=== PATIENT | female | born 1990 | race Caucasian/White ===

== ENCOUNTER 2018-01-17 09:40 | Outpatient (CLI) | payer OTHER, SELFPAY ==
[2018-01-17 11:27] LABS: CREATININE 1.04 mg/dL (0.55-1.02); Potassium 4.2 mmol/L (3.5-5.1)
== END 2018-01-17 10:00 ==
PROVIDERS: PCP Family Medicine; Visit Provider Family Medicine
DX: I10 Essential (primary) hypertension (principal)
CPT/HCPCS: 36415; 82565; 84132

== ENCOUNTER 2018-02-09 15:01 | Outpatient (REF) | payer OTHER, SELFPAY ==
[2018-02-12 15:21] LABS: Chlamydia Result Negative; GC Result Negative; Specimen Description CERVIX
== END 2018-02-09 15:21 ==
LOC: LBN 15:01
PROVIDERS: PCP Family Medicine; Visit Provider Nurse Practitioner Family
DX: Z11.3 Encounter for screening for infections with a predominantly sexual mode of transmission (principal)
CPT/HCPCS: 87491; 87591

== ENCOUNTER 2018-06-04 16:10 | Outpatient (REF) | payer OTHER, SELFPAY ==
--- NOTE | 2018-06-04 15:46 | SKI_PTH ---
PATIENT: Maday Cordero LOC: [facility] U#:[id number] AGE/SX: 27/F ROOM: RE06/04/[address]: Noam Charles DO : 1990 BED: DIS: 06/04/2018 SPEC #: [id number] RECD: 06/04/18 18:02 STATUS: ALAN REKatie #: [id number] BETTY: 06/04/18 15:[address]: Noam Charles DEPT: Surgical Specimen RECD BY: Ngoc Yeboah ENTERED: 06/04/18 18:04 SP TYPE: DELANEY DUPONT DR: Aris Mueller MD Tissues: 1 - SKIN BIOPSY(SHAVE/PUNCH) 2 - SKIN BIOPSY(SHAVE/PUNCH) Procedures: SKIN LEVEL 4 Comments: [id number]
== END 2018-06-04 16:30 ==
LOC: LBN 16:10
PROVIDERS: PCP Family Medicine; Visit Provider Otolaryngology Otolaryngology/Facial Plastic Surgery
DX: D22.4 Melanocytic nevi of scalp and neck (principal); D22.5 Melanocytic nevi of trunk
CPT/HCPCS: 88305

== ENCOUNTER 2019-03-18 16:01 | Outpatient (CLI) | payer OTHER, SELFPAY ==
[2019-03-18 17:43] LABS: TSH (W/Ref FT4) 2.91 uIU/mL (0.36-3.74)
== END 2019-03-18 16:21 ==
PROVIDERS: PCP Family Medicine; Visit Provider Nurse Practitioner Family
DX: Z86.39 Personal history of other endocrine, nutritional and metabolic disease (principal)
CPT/HCPCS: 36415; 84443

== ENCOUNTER 2019-04-26 14:41 | Outpatient (CLI) | payer OTHER, SELFPAY ==
[2019-04-26 15:33] LABS: Abs Immature Grans 0.02 k/cumm (0.0-0.09); Absolute Basophil Count 0.02 k/cumm (0.0-0.2); Absolute Eosinophil Count 0.22 k/cumm (0.0-0.7); Absolute Lymphocyte Count 3.05 k/cumm (1.2-3.4); Absolute Monocyte Count 0.65 k/cumm (0.11-0.7); Absolute Neutrophil Count 6.06 k/cumm (1.2-6.7); Basophils % 0.2; Eosinophils % 2.2; HGB 13.9 g/dL (12.0-15.5); Immature Grans % 0.2 %; Lymphocytes % 30.4; Mean Corp. HGB Concentration 33.9 g/dL (32.0-36.0); Mean Corpuscular Volume 91.5 fL (80-95); Mean Platelet Volume 10.5 fL (8.0-11.0); Monocytes % 6.5; Neutrophils % 60.5; Platelet Count 270 x1000/uL (130-400); RBC 4.48 m/cumm (4.00-5.20); RBC Distribution Width 12.8 % (11.7-14.6); White Blood Cell Count 10.02 k/cumm (4.4-10.8)
[2019-04-26 16:11] LABS: Anion Gap 12.8 mmol/L (3-11); BUN 8 mg/dL (7-18); CO2 24.2 mmol/L (21.0-32.0); CREATININE 1.18 mg/dL (0.55-1.02); Calcium 9.3 mg/dL (8.5-10.1); Chloride 105 mmol/L (98-107); Estimated GFR 54.15 (mL/min/1.73m2); Glucose 98 mg/dL (74-106); Potassium 4.1 mmol/L (3.5-5.1); Sodium 142 mmol/L (136-145)
== END 2019-04-26 15:01 ==
PROVIDERS: PCP Family Medicine; Visit Provider Family Medicine
DX: R42 Dizziness and giddiness (principal)
CPT/HCPCS: 36415; 80048; 85025

== ENCOUNTER 2019-11-19 14:29 | Outpatient (CLI) | payer OTHER, SELFPAY ==
[2019-11-19 16:25] LABS: Estimated GFR 58.32 (mL/min/1.73m2)
[2019-11-20 09:00] LABS: Calculated LDL 108 mg/dL (<100); Cholesterol 166 mg/dL (<200); HDL Cholesterol 33 mg/dL (40-60); Triglyceride 125 mg/dL (<150)
== END 2019-11-19 14:49 ==
PROVIDERS: PCP Family Medicine; Visit Provider Family Medicine
DX: N28.9 Disorder of kidney and ureter, unspecified (principal); E78.5 Hyperlipidemia, unspecified
CPT/HCPCS: 80061; 82565

== ENCOUNTER 2019-11-22 02:25 | Outpatient (CLI) | payer OTHER, SELFPAY | END 2019-11-22 02:45 | PROVIDERS: PCP Family Medicine; Visit Provider Family Medicine | DX: R00.1 Bradycardia, unspecified (principal) | CPT/HCPCS: 93225 ==

== ENCOUNTER 2019-11-25 14:17 | Outpatient (CLI) | payer OTHER, SELFPAY ==
--- NOTE | 2019-11-25 15:27 | W.HOLTRPT ---
Date of service: 11/25/19 Time of Service: 15:27 Holter Monitor Report Referring Provider:: Ervin Indications:: Palpitations Holter Monitor Note: There is a 48-hour Holter monitor ordered for indication of palpitations. The patient was in normal sinus rhythm for majority of the recording with an average heart rate of 80 bpm. ?There was one episode of SVT which lasted a total of 3 beats. There were 2 total premature atrial contractions. ?There were no episodes of ventricular tachycardia and 4 total single ventricular ectopic beats. ?There were no episodes of atrial fibrillation, no pauses greater than 3 seconds and no evidence of high degree heart block. ?There were no patient triggered events.
== END 2019-11-25 14:37 ==
PROVIDERS: PCP Family Medicine; Visit Provider Family Medicine
DX: R00.2 Palpitations (principal); I47.1 Supraventricular tachycardia; I49.1 Atrial premature depolarization
CPT/HCPCS: 93226

== ENCOUNTER 2020-04-13 09:16 | Outpatient (REF) | payer OTHER, SELFPAY ==
--- NOTE | 2020-04-13 08:20 | PAPFT_PTH ---
PATIENT: Maday Cordero LOC: [facility] U#:[id number] AGE/SX: 29/F ROOM: RE04/13/[address]: WILLOW Ram : 1990 BED: DIS: 04/13/2020 SPEC #: [id number] RECD: 04/13/20 13:02 STATUS: ALAN REKatie #: [id number] BETTY: 04/13/20 08:[address]: Hannah Mckeon DEPT: [facility] Cytology RECD BY: Ngoc Yeboah ENTERED: 04/13/20 13:02 SP TYPE: PAPFT OT DR: Aris Mueller MD Tissues: 1 - CX/ENDOCX FOR PAP SMEARS Procedures: PAP THIN PREP/UVM Screening HPV DNA PROBE Comments: [id number]
--- OUTSIDE RECORDS SUMMARY | 2020-04-13 09:37 | XMS_ITS ---
:1990 Author Care Team Providers Name Role Phone FALLON LANGSTON MD Primary Care Provider [phone] [facility] MEDICAL RECORDS OTHER [phone] Allergies Code Code Name Reaction Severity Status Onset System 442965 RxNorm Dexmethylphenidate ? ? Active ? 54672 RxNorm Lisinopril ? ? Active ? 1430792 RxNorm Lorcaserin ? ? Active ? Medications Name Status Start Date Stop Date ? ? amlodipine 5 mg-olmesartan 20 mg tablet Completed ? 03/26/2020 amlodipine 5 mg-olmesartan 40 mg tablet Active ? Not available 04/25 tab amoxicillin 875 mg tablet Completed ? 2019 amoxicillin 875 mg-potassium Completed ? 04/2019 clavulanate 125 mg tablet bupropion HCl XL 150 mg 24 hr tablet, Completed ? 01/23/2020 extended release fluconazole 150 mg tablet Completed ? 2019 fluoxetine 10 mg tablet Completed ? 01/23/20 20 fluoxetine 20 mg capsule Completed ? 020 prednisolone acetate 1 % eye Completed ? 04/2019 drops,suspension Problems Name Status Onset Date Source ? Compound Nevus of Skin Active 01/17/2020 ? Pseudotumor Calcinosis Active 01/17/2020 ? Obesity Active 01/17/2020 ? Migraine without Aura Active 01/17/2020 ? Drusen of Optic Disc Active 01/17/2020 ? Hypertensive Disorder Active 01/17/2020 ? Acute Nephropathy Active 01/17/2020 ? Nephritis Active 01/17/2020 ? Contraception Active 01/17/2020 ? History of Hypertension Active 01/17/2020 ? Snoring Active 01/21/2020 ? Obstructive Sleep Apnea Syndrome Active ? ? Procedures None recorded. Results Lab Results None recorded. 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 01/23/2020 Snoring; Insomnia Kelsey Mcdaniel, PALLET STONE POSITIONER: [address] [place] [phone], Ph. Social History Tobacco Smoking Status Never Smoker Vaccine List None recorded. Plan of Care Reminders Provider Appointments None ? ? recorded. Lab None ? ? recorded. Referral None ? ? recorded. Procedures None ? ? recorded. Surgeries None ? ? recorded. Imaging None ? ? recorded. Vitals 03/26/2020 02:30PM Office 30 Height 170.18 cm 01/23/2020 03:15PM New Patient 44 Height Weight BMI 170.18 cm 122.47 kg 42.3 kg/m2
--- OUTSIDE RECORDS SUMMARY | 2020-04-13 09:37 | XMS_ITS | Encounter Summary ---
:1990 Author Care Team Providers Name Role Phone Aris Mueller MD Primary Care Provider [phone] [facility] Medical Records OTHER [phone] Reason for Visit SLEEP CLINIC New Adult Patient Assessment and Plan 1. Snoring Maday has symptoms of snorin g, daytime somnolence, nocturnal gasping/dyspnea, nocturia with a [place] score of 3/3 indicating a high likelihood of sleep apnea. She has HTN which may be caused or worsened by untreated sleep apnea. I discussed the pathophysiology of obstructive sleep apnea and the potential consequences of untreated JOHNNIE including how it relates to her symptoms and comorbiditi es. 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 I discussed ordering a PSG but she has a young daughter at home that she does not want to leave alone so she has re quested to have a HST and this was order ed. I will see her back to review the results when available. Drowsy driving precautions were reviewed. I provided greater than 40 minutes in e care of this patient, more than half the time was spent in [id number] counseling. ? Home Sleep Apnea Testing 2. Insomnia She reports is takes 1-2 hours to fall asleep every night but she gets to bed with her daughter around 8:30 pm and she doesn't get up until 6:30 am. I explained that she really shouldn't be g etting to bed until around 10:30 pm if her rise time is 6:30 am. She is trying to g et more sleep than she needs and in turn creating the problem with falling asleep . unfortunately her daughter sleeps with her and she needs to go to bed with her to g et her to sleep. I would not recommend any sleep aid for this. Discussion Note: None recorded.Patient educational handouts: No information available. Plan of Care Reminders Provider Appointments Office 06/24/2020 Rafi Mcdaniel, 3:30PM TOOL TURRET LATHE SET UP OPERATOR Lab None ? ? recorded. Referral None ? ? recorded. Procedures None ? ? recorded. Surgeries None ? ? recorded. Imaging None ? ? recorded. Medications Name Start Date ? ? amlodipine 5 mg-olmesartan 40 mg tablet ? 1/2 tab Medications Administered None recorded. Vitals Height Weight BMI 5 ft 7 in 270 lbs 42.3 kg/m2 Results Lab Results None recorded. Allergies Code Code System Name Reaction Severity Onset 997209 RxNorm Dexmethylphenidate ? ? ? 49471 RxNorm Lisinopril ? ? ? 3048091 RxNorm Lorcaserin ? ? ? Problems Name Status Onset Date Source ? [...] Syndrome Active ? ? Procedures None recorded. Vaccine List None recorded. Social History Tobacco Smoking Status Never Smoker Are you currently employed? Y Blind or serious difficulty Y Notes: wi th glasses seeing Have you had close contact with N someone who travelled internationally and was ill? Advance directive N E-cigarette/Vape Status Never used electronic cigarettes Exercise level Moderate Hand Dominance Right Alcohol intake None Live alone or with others? with others Animal exposure? Y Notes: 2 dogs Smokeless Tobacco Status Never used smokeless tobacco Education 4 Year College Current Method of Control Hormonal methods Passive smoke exposure? N Hard of hearing or deaf in one or N both ears? 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 Past Encounters 01/23/2020 Snoring; Insomnia Kelsey Mcdaniel NP: [address] [place] [phone], Ph. History of Present Illness Note: <p>Maday Cordero is seen in consultation at the request of Aris Mueller MD for evaluation of snoring and daytime somnolence.</p><p>
</p><p>Maday hasa medical history to include HTN, obesity. GERD, migraine, and nephritis (s/p nephrectomy). Labs 04/26/19 CBC wnl, BMP Cr 1.18.</p><p>
</p><p>{{Maday# Patient}} feels {{his her*}} biggest problem with sleep is {{ waking up a lot and lack of ability to sleep# snoring waking up a lot not feeling rested}}. This has been going on for years now. 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 It takes {{60-120# 5}} minutes to fall asleep. {{He She*}} wakes up {{3-5# 1 2 3}} times a night to{{urinate or reposition# unknown reason pain bathroom}} and it takes {{5# }} minutes to get back to sleep. {{He She*}} gets up at {{6:30 # 5 6 7 8}}am to start {{his her*}} day. {{He She*}} does not take na ps. {{He She*}} has disturbances to {{his her*}} sleep to include having {{TV lights noise children * pets}} in the bedroom at night. {{He She*}} has never had a sleep study. {{He She*}}sleeps {{ with someone and two dogs# alone with someone}} in a bed.

SLEEP QUALITY: Feels quality of sleep most nights is {{good okay poor*}}.

DAYTIME ALERTNESS: Reports level of alertness most days to be {{ low energy to sleepy# alert low energy sleepy very sleepy}}.

PSYCH SYMPTOMS: {{Has* Has not}} noted worsening memory {{but not# and or}} concentration. {{Does# Does have Denies current problems with }} irritability{{and * or}} anxiety. {{but no depression# Has Has not}} noted difficulty with calculatio ns.

INSOMNIA SYMPTOMS: {{Does have * Does not have}} an active mind at night when trying to sleep. {{Does have Does not have*}} stressful thoughts interfering with sleep. {{Does * Does not}} watch the clock throughout the night. {{Does * Does not}} worry about getting a good night's sleep.

BREATHING SYMPTOMS: {{Does have * Does not have}} snoring. {{Does have Does not have*}} witnessed apnea. {{Does have * Does not have}} nocturnal gasping/dyspnea.{{Does have * Does not have}} mouth breathing. {{Does have Does not have*}} nasal congestion at night.&l t;br>

MOVEMENT SYMPTOMS: {{Does have * Does not have}} tossing & turning. {{Does have * Does not have}} messy sheets in the morning. {{Does have Does not have*}} leg or arm jerks, kicks or twitches in sleep or prior to falling asleep. {{Does Does not*}} have an aching, restless or crawling feeling in legs at night. {{Does Does not*}} have a hard time keeping legsstill when trying to sleep. {{Does Does not*}} have muscle cramps or Priyank horses. {{Does Does not*}} have sleep walking or talking.

DREAM SYMPTOMS: {{Does have Does not have*}} nightmares often that affect ability to sleep. {{Does have * Does not have}} dreams of suffocating/drowning. {{Does Does not*}} dream shortly after falling asleep. {{Does Does not*}} see dreams in the room even when awake.{{Does Does not*}} see or hear things in the room when falling asleep that aren't really there. {{Does Does not*}} see things in the road when driving that aren't really there. {{Has Has not*}} had someone see then act our their dreams. {{Has Has not*}} accidentally injured themselves while sleeping due to own movements/behaviors.

CATAPLEXY SYMPTOMS: {{Does have Does not have*}} feel limp, lose strength, or fall asleep when very angry, surprised or laughing. {{Does have Does not have*}} leg, arm or face weakness when upset. {{Has Has not*}} had episodes of being unable to move when waking up which is often frightening.

DRIVING: {{Has Has not*}} fallen asleep or nearly fallen asleep driving. {{Has had Amezquita s not had*}} an accident related to drowsy driving or not paying attention. {{Does * Does not}} forget the last few miles or minutes while driving. {{Has Has not*}} driven out of andres and crossed center line or gone onto shoulder when driving. {{Has Has not*}} had a passenger tell them they look sleepy when driving.

ESS today 02/14
[place] Questionnaire Score 3/3</p>Review of Systems: ROS as noted in the HPI Review of Systems ? Notes: <p>nocturia 1-2/night, wakes with sore throat, palpitations, heartburn/reflux (was waking with this until taking famotidine), morning headaches (1-2/week) and claustrophobia. </p> Physical Exam ? Notes: <p>N/A</p>
--- OUTSIDE RECORDS SUMMARY | 2020-04-13 09:37 | XMS_ITS | Encounter Summary ---
:1990 Author Care Team Providers Name Role Phone Aris Mueller MD Primary Care Provider [phone] [facility] Medical Records OTHER [phone] Reason for Visit Phone Call Visit Assessment and Plan 1. Obstructive sleep apnea syndr ome JOHNNIE with an AHI of 8.6/hr diag nosed on HST which may underestimate the severity. Given her symptoms ( snoring, daytime somnolence, nocturnal gasping/dyspnea, nocturia) and HTN, treatment is i ndicated. I discussed treatment options to include oral appliance, ENT surgery and CPAP therapy and the advantages and disadvantages of each. She has chosen to start with CPAP. CPAP 6-16cm is ordered. I discussed different mask options and e importance of finding the mask that will work for her within the first 30 days. I discussed how to adjust humidity for dryness/congestion and that the goal will be to use nightly for her total sleep t padmini. I covered insurance compliance requirements and the DME's mask exchange policy. I will see her back between 31- 90 days after starting CPAP and she is encoura getanvir to call me sooner if he is having an y difficulties tolerating CPAP. Drowsy driving precautions were reviewed. I provided greater than 25 minutes in e care of this patient, more than half the time was spent in [id number] counseling. ? CPAP machine Discussion Note: None recorded.Patient educational handouts: No information available. Plan of Care Reminders Provider Appointments Office 30 06/24/2020 Rafi Mcdaniel, 3:30PM CONDUIT INSTALLER Lab None ? ? recorded. Referral None ? ? recorded. Procedures None ? ? recorded. Surgeries None ? ? recorded. Imaging None ? ? recorded. Medications Name Start Date ? ? amlodipine 5 mg-olmesartan 40 mg tablet ? 1/2 tab Medications Administered None recorded. Vitals Height 5 ft 7 in Results Lab Results None recorded. Allergies Code Code System Name Reaction Severity Onset 826588 RxNorm Dexmethylphenidate ? ? ? 94885 RxNorm Lisinopril ? ? ? 5225605 RxNorm Lorcaserin ? ? ? Problems Name [...] someone who travelled internationally and was ill? E-cigarette/Vape Status Never used electronic cigarettes Advance directive N Exercise level Moderate Animal exposure? Y Notes: 2 dogs Live alone or with others? with others Alcohol intake None Hand Dominance Right Education 4 Year College Smokeless Tobacco Status Never used smokeless tobacco Current Method of Control Hormonal methods Hard of hearing or deaf in one or N both ears? Passive smoke exposure? 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 Past Encounters 03/26/2020 Obstructive Sleep Apnea Syndrome Kelsey Mcdaniel CONDUIT INSTALLER: [address] [place] [phone], Ph. History of Present Illness Note: <p>Maday Cordero has a phone visit for HST results. She has given consent to have a phone visit. Patient is at home, provider is in the office.</p><p>
</p><p>Maday was seen by me on 01/23/20. She has a medical history to include HTN, obesity. GERD, migraine, and nephritis (s/p nephrectomy). Labs 04/26/19 CBC wnl, BMP Cr 1.18. She noted symptoms of snoring, daytime somnolence (ESS 10), nocturnal gasping/dyspnea, and nocturia. She also reported it takes 1-2 hours to fall asleep each night but she goes to bed with her daughter at 2030 and does not get up until 0630 so she is getting to bed too early. I suggested she not go to bed until 2229.</p><p>HST 02/12/20 (BMI 42.28), AHI 8.6/hr, supine AHI 11/hr, right lateral AHI 7/hr, left lateral AHI 1/hr. Sp02 moon 88%.</p><p>
</p><p>Maday tells me she continues tohave above symptoms and offers no new sleep complaints today. She says her sleep was worse for the study compared to a typical night because she kept waking up from the PTAF.</p><p>
</p><p>ESS today 02/14</p>Review of Systems: ROS as noted in the HPI Review of Systems None recorded. Physical Exam ? Notes: <p>N/A</p>
== END 2020-04-13 09:36 ==
LOC: LBN 09:16
PROVIDERS: PCP Family Medicine; Visit Provider Nurse Practitioner Family
DX: Z12.4 Encounter for screening for malignant neoplasm of cervix (principal); Z11.51 Encounter for screening for human papillomavirus (HPV)
CPT/HCPCS: 88142; 87624

== ENCOUNTER 2020-04-15 15:14 | Outpatient (CLI) | payer OTHER, SELFPAY ==
[2020-04-15 16:22] LABS: Anion Gap 8.3 mmol/L (3-11); BUN 10 mg/dL (7-18); CO2 25.7 mmol/L (21.0-32.0); CREATININE 1.33 mg/dL (0.55-1.02); Calcium 8.9 mg/dL (8.5-10.1); Chloride 106 mmol/L (98-107); Estimated GFR 46.84 (mL/min/1.73m2); Glucose 74 mg/dL (74-106); Sodium 140 mmol/L (136-145)
== END 2020-04-15 15:34 ==
PROVIDERS: PCP Family Medicine; Visit Provider Family Medicine
DX: E87.1 Hypo-osmolality and hyponatremia (principal)
CPT/HCPCS: 36415; 80048

== ENCOUNTER 2020-07-08 02:20 | Outpatient (CLI) | payer OTHER, SELFPAY ==
[2020-07-08 15:55] LABS: Abs Immature Grans 0.05 10^3/uL (0.0-0.06); Absolute Basophil Count 0.05 10^3/uL (0.0-0.2); Absolute Eosinophil Count 0.26 10^3/uL (0.0-0.7); Absolute Lymphocyte Count 3.72 10^3/uL (1.2-3.4); Absolute Monocyte Count 0.83 10^3/uL (0.1-0.8); Absolute Neutrophil Count 7.61 10^3/uL (1.2-6.7); Basophils % 0.4; Eosinophils % 2.1; HCT 42.4 % (36.0-46.0); HGB 14.2 g/dL (11.2-15.7); Immature Grans % 0.4; Lymphocytes % 29.7; MCH 31.8 pg (27.0-33.0); MCHC 33.5 % (32.0-36.0); MCV 95.1 fL (80-95); MPV 10.1 fL (8.0-11.0); Monocytes % 6.6; Neutrophils % 60.8; Nucleated RBC 0 %; Platelet Count 295 10^3/uL (130-400); RBC 4.46 10^6/uL (3.93-5.22); RDW 12.3 % (11.7-14.6); WBC 12.52 10^3/uL (4.4-10.8)
[2020-07-08 16:29] LABS: Anion Gap 11.5 mmol/L (3-11); BUN 9 mg/dL (7-18); CO2 25.5 mmol/L (21.0-32.0); CREATININE 1.3 mg/dL (0.55-1.02); Chloride 105 mmol/L (98-107); Estimated GFR 48.09 (mL/min/1.73m2); Glucose 96 mg/dL (74-106); Potassium 3.9 mmol/L (3.5-5.1); Sodium 142 mmol/L (136-145)
== END 2020-07-08 02:21 | disposition home or self-care (01) ==
LOC: LBO 02:20
PROVIDERS: PCP Family Medicine; Visit Provider Internal Medicine Nephrology
DX: I15.0 Renovascular hypertension (principal)
CPT/HCPCS: 36415; 80048; 85025

== ENCOUNTER 2020-08-03 13:35 | Outpatient (REF) | payer OTHER, SELFPAY ==
[2020-08-07 10:04] LABS: HSV 1 DNA Result Negative (Negative); HSV 2 DNA Result Negative (Negative)
== END 2020-08-03 13:36 | disposition home or self-care (01) ==
LOC: LBN 13:35
PROVIDERS: PCP Family Medicine; Visit Provider Nurse Practitioner Women's Health
DX: K13.79 Other lesions of oral mucosa (principal)
CPT/HCPCS: 87529

== ENCOUNTER 2020-08-04 21:01 | Outpatient (REF) | payer OTHER, SELFPAY | END 2020-08-04 21:02 | disposition home or self-care (01) | LOC: LBN 21:01 | PROVIDERS: PCP Family Medicine; Visit Provider Nurse Practitioner Family | DX: J02.9 Acute pharyngitis, unspecified (principal) | CPT/HCPCS: 87070 ==

== ENCOUNTER 2020-10-27 14:31 | Outpatient (CLI) | payer OTHER, SELFPAY ==
--- NOTE | 2020-10-27 14:30 | RT.EKG_ITS ---
APPROVED REPORT Exam: Resting ECG Reason for Exam: chest pain Patient Location: O HR:81 bpm ECG Measurements Heart Rate 81 AXIS SC 151 P 42 QRSd 93 QRS 34 QT 399 T 56 QTc 464 Conclusion Sinus rhythm...normal P axis, V-rate 60- 99
== END 2020-10-27 14:32 | disposition home or self-care (01) ==
LOC: DI.CM 14:32
PROVIDERS: PCP Family Medicine; Visit Provider Family Medicine
DX: R07.9 Chest pain, unspecified (principal)
CPT/HCPCS: 93010

== ENCOUNTER 2020-12-18 21:03 | Outpatient (REF) | payer OTHER, SELFPAY ==
[2020-12-20 01:49] LABS: COVID-19 RT-PCR UVMMC Result Negative (Negative)
== END 2020-12-18 21:04 | disposition home or self-care (01) ==
LOC: LBN 21:03
PROVIDERS: PCP Family Medicine; Visit Provider Physician Assistant
DX: Z20.822 Contact with and (suspected) exposure to COVID-19 (principal)
CPT/HCPCS: U0003

== ENCOUNTER 2020-12-21 09:00 | Emergency (ER) | payer OTHER, SELFPAY ==
[2020-12-21] VITALS (15 sets, daily range): BP systolic 128–159; BP diastolic 70–114; PULSE 61–89; RESP 16–23; TEMP 36.6; O2SAT 95–100
--- NOTE | 2020-12-21 09:15 | DI.CT_ITS ---
Exam(s) CT HEAD WO EXAM: CT HEAD WO CLINICAL HISTORY: Headache, Dizziness. TECHNIQUE: Imaging Protocol: Axial computed tomography images with coronal and sagittal reformatted images were created and reviewed COMPARISON: No exams were available for comparison FINDINGS: Ventricles and Extra axial spaces: Normal in size and morphology for the patient's age. Hemorrhage: None. Cerebral parenchyma: Normal. Midline shift: None. Brainstem/Cerebellum: Normal. Calvarium: Normal. Visualized Paranasal sinuses/Mastoids: There is near complete opacification of the left sphenoid sinu s. The remaining visualized paranasal sinuses and mastoid air cells are clear. Soft Tissues: Unremarkable. IMPRESSION: 1. No acute intracranial process. 2. Left sphenoid sinusitis. 3. Results of this exam have been verbally communicated with provider. RADIATION DOSE DELIVERED: 768.42mGy.cm Total DLP DATA REPOSITORY: All CT scans at this facility are submitted to the National Radiology Data Registry (NRDR) Dose Index Registry (DIR) with the [employer] (A[employer]). RADIATION OPTIMIZATION: All CT scans at this facility use at least one of these dose optimization te chniques: automated exposure control; mA and/or kV adjustment per patient size (includes targeted exa ms where dose is matched to clinical indication); or iterative reconstruction.
--- NOTE | 2020-12-21 09:18 | W.ED.GENAD ---
Discharge Plan Disposition Patient Disposition: HOME Condition: Stable Discharge Details Clinical Impression: Headache, Sinusitis Primary Care Provider: Aris Mueller ED Provider: Svetlana Gallegos Home Meds and New Rx's Prescriptions: New ondansetron 4 mg tablet,disintegrating 4 mg PO Q8H PRN5 Days Qty: 15 RF: 0 amoxicillin-pot clavulanate [Augmentin] 875-125 mg tablet 1 tab PO BID 10 Days Qty: 20 RF: 0 fluconazole [Diflucan] 150 mg tablet 150 mg PO ONCE Qty: 1 RF: 0 Continued famotidine 20 mg tablet 20 mg PO DAILY PRN (Reason: acid reflux) Qty: 90 RF: 3 metoprolol tartrate 25 mg tablet 12.5 - 25 mg PO BID Qty: 180 RF: 3 Nexplanon 68 mg implant 1 implant SBD ONCE RF: 0 meclizine 25 mg tablet 25 mg PO TID PRN (Reason: dizziness) Qty: 10 RF: 0 metoprolol succinate 25 mg tablet extended release 24 hr 25 mg PO DAILY Qty: 30 RF: 2 escitalopram oxalate 10 mg tablet 10 mg PO DAILY Qty: 30 RF: 2 clonazepam [Klonopin] 0.5 mg tablet 0.25 - 0.5 mg PO BID Qty: 30 RF: 1 Discharge Instructions Instructions: General Headache (ED) Additional Instructions: At this time you have opted to leave prior to receiving the results from the head CT. I will give you a call if any abnormality arises any need to be aware. Follow up with primary care provider in 3-5 days. Return to ED sooner if any worsening or concerns. Increase oral fluids. Please take Tylenol or Ibuprofen with food every 4-6 hours as needed for pain and swelling. Zofran was sent to the pharmacy we have on file for you. Referrals: Aris Mueller [Primary Care Provider] - 5 days Medical Decision Making 30-year-old female presents to the ER with chief complaint of headache and dizziness x1 week. Patient was seen in urgent care on Monday and was given meclizine. She reports occipital pain, frontal headache pain and sinus pressure. She states that dizziness gets worse when turning head to the right and laying on her right side. She denies any recent head trauma. No nuchal rigidity. Denies any fever, chills, problems urinating or burning with urination or any other associated symptoms. Does have a past medical history of anxiety, hypertension, renal hypertension she does take metoprolol she did take this morning approximately 8:30 AM. She also took Tylenol around 7 AM. At this time work-up ordered including CBC CMP, urinalysis urine test and CT head without contrast. IV normal saline 1 L Compazine and Benadryl ordered. 1106: Patient re-evaluated, pain has improved. Awaiting CT at this time. Patient updated on plan of care, verbalizes understanding. 1220: Patient requesting to leave prior to CT rib being resulted. Patient informed that cannot rule out any major intracranial process. Patient reports that she is feeling better after the medications and fluids and would like to be discharged. I will call patient for any CT abnormality if needed. 1246: CT head negative except for some left sphenoid sinusitis. Patient called and made aware of the CT result. She verbalized understanding. Amoxicillin clavulanate and Diflucan x1 sent to patient's pharmacy on file. Patient has remained hemodynamically stable throughout stay. This text was generated using [employer] system, please disregard any oddities of phrase or misspellings. HPI General Mode of arrival: ambulatory. Date/Time Provider Initiated Documentation: 12/21/20 09:01. Limitations to Documentation: no limitations. Information obtained by: patient and RN notes reviewed. HPI Narrative: 30-year-old female presents to the ER with chief complaint of headache and dizziness x1 week. Patient was seen in urgent care on Monday and was given meclizine. She reports occipital pain, frontal headache pain and sinus pressure. She states that dizziness gets worse when turning head to the right and laying on her right side. She denies any recent head trauma. No nuchal rigidity. Denies any fever, chills, problems urinating or burning with urination or any other associated symptoms. Does have a past medical history of anxiety, hypertension, renal hypertension she does take metoprolol she did take this morning approximately 8:30 AM. She also took Tylenol around 7 AM. Related Data Home Medications Medication Instructions Recorded Confirmed etonogestrel 68 mg subdermal 1 implant SBD ONCE 05/10/18 12/21/20 implant famotidine 20 mg tablet 20 mg PO DAILY PRN #90 tab 11/20/19 12/21/20 metoprolol succinate 25 mg 25 mg PO DAILY #30 tab 08/20/20 12/19/20 tablet,extended release 24 hr metoprolol tartrate 25 mg tablet 12.5 - 25 mg PO BID #180 tab 08/28/20 12/21/20 clonazepam 0.5 mg tablet 0.25 - 0.5 mg PO BID #30 tab 10/27/20 12/19/20 escitalopram oxalate 10 mg tablet 10 mg PO DAILY #30 tab 10/27/20 12/19/20 meclizine 25 mg tablet 25 mg PO TID PRN #10 tab 12/18/20 12/21/20 amoxicillin-pot clavulanate 1 tab PO BID 10 Days #20 tab 12/21/20 [Augmentin] fluconazole [Diflucan] 150 mg PO ONCE #1 tab 12/21/20 ondansetron 4 mg PO Q8H PRN 5 Days #15 tab 12/21/20 Previous Rx's Medication Instructions Recorded famotidine 20 mg tablet 20 mg PO DAILY PRN #90 tab 11/20/19 metoprolol succinate 25 mg 25 mg PO DAILY #30 tab 08/20/20 tablet,extended release 24 hr metoprolol tartrate 25 mg tablet 12.5 - 25 mg PO BID #180 tab 08/28/20 clonazepam 0.5 mg tablet 0.25 - 0.5 mg PO BID #30 tab 10/27/20 escitalopram oxalate 10 mg tablet 10 mg PO DAILY #30 tab 10/27/20 meclizine 25 mg tablet 25 mg PO TID PRN #10 tab 12/18/20 amoxicillin-pot clavulanate 1 tab PO BID 10 Days #20 tab 12/21/20 [Augmentin] fluconazole [Diflucan] 150 mg PO ONCE #1 tab 12/21/20 ondansetron 4 mg PO Q8H PRN 5 Days #15 tab 12/21/20 Allergies Allergy/AdvReac Type Severity Reaction Status Date / Time dexmethylphenidate HCl AdvReac Severe palpitation Verified 12/21/20 09:18 [From Focalin] s lorcaserin HCl [From Belviq] AdvReac Severe Palpitation Verified 12/21/20 09:18 s lisinopril AdvReac Intermediate cough Verified 12/21/20 09:18 General Stated Complaint: Headache SVEN: 3 Review of Systems All systems reviewed & are unremarkable except as noted in HPI and below Constitutional Constitutional: Reports as per HPI, Denies body ache(s), Denies chills, Denies fever(s) and Reports headache(s) Eyes Eyes: Denies loss of vision ENT Ears, Nose, Mouth, and Throat: Reports dizziness, Denies otalgia, Reports headache(s), Denies neck pain, Reports sinus pressure and Denies sore throat Cardiovascular Cardiovascular: Denies chest pain Respiratory Respiratory: Denies chest congestion and Denies cough Gastrointestinal Gastrointestinal: Denies diarrhea, Denies nausea and Denies vomiting Genitourinary Genitourinary: Denies dysuria and Denies urinary incontinence Musculoskeletal Musculoskeletal: Denies neck pain Neurologic Neurologic: Reports dizziness, Reports headache(s), Denies lack of coordination, Denies localized weakness, Denies loss of vision and Denies convulsions [facility] Medical History Chronic hypertension conceived on Methyldopa. 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 REYNOLDS; RIGHT HAMMERT[place] 09/08/17 History of wisdom tooth extraction Right toe (~08/2017) Status post tonsillectomy and adenoidectomy Tonsillectomy and adenoidectomy age 14 yrs Tooth extraction (~2006) [place] teeth extraction Family History Mother Heart disease Congenital heart defect Father Essential hypertension Grandfather Diabetes Alcohol abuse Essential hypertension Depression Heart disease Hyperlipidemia Asthma Grandfather Alcohol abuse Essential hypertension Heart disease Hyperlipidemia Asthma Grandmother Diabetes Alcohol abuse Essential hypertension Heart disease Grandmother Alcohol abuse Essential hypertension Heart disease Brother Essential hypertension Social History Smoking/Tobacco Use Status: Never Second Hand Exposure: No Smoking risk assessment performed?: Yes Alcohol Intake: never Drug use: Never Caregiver/Support person: No Household members: spouse and children Housing: house Communication Needs: None Do you need help understanding health information?: Never Pets and animals: Yes Pets and animals: dog(s) Sexually active: Yes Do you think of yourself as: straight/heterosexual Current gender identity: female What is your relationship status?: How often do you talk on the phone with friends or family?: three or more times per week How often do you get together with friends or relatives?: once per week How often do you attend sikh or confucianist services?: decline to answer Do you belong to any clubs or organized social groups?: yes Panel score (0-1 are the most socially isolated patients): 3 What type of physical activity do you participate in: walking Duration: 15-30 minutes/day Frequency: 1-2 times per week Chayo/Episcopalian: No preference Special chayo needs: No Seatbelt use: always Helmet use: Yes Helmet use: always Drive intox or ride w/intox petroleum transport driver: No Do you feel safe at home: Yes Do you feel safe in your relationship?: Yes Female Reproductive History Menstrual control method: progestin IUCD and implanted History History 2 Para 1 Hx # Term Pregnancies Multiple births Hx # Pregnancies Ectopic pregnancies AB induced Hx Number of Living Children AB spontaneous Exam Narrative Exam Narrative: Constitutional: Alert and oriented x3. Appears stated age. Normal body habitus. Head: Normocephalic, no trauma. Eyes: Pupils PERRLA, Red reflex noted, EOM's intact. Eyelids symmetrical without lesions, discharge, or swelling. ENT: Bilateral TM's WNL, External ear normal to inspection, no mastoid TTP, swelling, or erythema, Nasal turbinates WNL, no nasal discharge. Normal dentition, Posterior pharynx WNL, no exudate. Chest: RRR, Normal S1, S2, distal pulses intact. Resp: Lungs clear to auscultation bilaterally, no wheezes, rales, or rhonchi. Musculoskeletal: Normal gait, 5/5 strength to all four extremities. Skin: No suspicious rashes or lesions. Capillary refill less than 2 sec. Neurologic: Cranial nerves II-XII intact. Alert and oriented x 3. DTR's intact. Hematologic/Lymphatic: No ecchymosis, no lymphadenopathy. Course Vital Signs Vital signs: Vital Signs Temperature 36.6 C 12/21/20 09:06 Pulse 85 12/21/20 09:06 Respiratory Rate 16 12/21/20 09:06 Pulse Oximetry 100 12/21/20 09:06 Temperature 36.6 C 12/21/20 09:06 Temperature Source Temporal Artery Scan 12/21/20 09:06 Pulse 85 12/21/20 09:06 Respiratory Rate 16 12/21/20 09:06 Respiratory Effort Non-Labored 12/21/20 09:16 Blood Pressure Position Sitting 12/21/20 09:06 Pulse Oximetry 100 12/21/20 09:06 Oxygen Delivery Method Room Air 12/21/20 09:06 Oxygen Flow Rate 0 12/21/20 09:06 Pain Level 6 12/21/20 09:06
[2020-12-21] MEDS: diphenhydrAMINE 50 MG/ML VIAL 25 MG IVP (09:52)
[2020-12-21] MEDS: Prochlorperazine 10 MG/2 ML VIAL IVP (09:52)
[2020-12-21 09:56] LABS: Abs Immature Grans 0.03 10^3/uL (0.0-0.06); Absolute Basophil Count 0.03 10^3/uL (0.0-0.2); Absolute Eosinophil Count 0.04 10^3/uL (0.0-0.7); Absolute Lymphocyte Count 1.93 10^3/uL (1.2-3.4); Absolute Monocyte Count 0.63 10^3/uL (0.1-0.8); Absolute Neutrophil Count 6.27 10^3/uL (1.2-6.7); Basophils % 0.3; Eosinophils % 0.4; HCT 45.2 % (36.0-46.0); HGB 15.5 g/dL (11.2-15.7); Immature Grans % 0.3; Lymphocytes % 21.6; MCH 31.4 pg (27.0-33.0); MCHC 34.3 % (32.0-36.0); MCV 91.7 fL (80-95); MPV 10.2 fL (8.0-11.0); Monocytes % 7.1; Neutrophils % 70.3; Nucleated RBC 0 %; Platelet Count 251 10^3/uL (130-400); RBC 4.93 10^6/uL (3.93-5.22); RDW 12.2 % (11.7-14.6); RDW-SD 41.2 fL; WBC 8.93 10^3/uL (4.4-10.8)
[2020-12-21 10:09] LABS: ALT 27 U/L (14-59); AST 7 U/L (15-37); Albumin 4.1 g/dL (3.4-5.0); Alkaline Phosphatase 68 U/L (46-116); Anion Gap 12.8 mmol/L (3-11); BUN 9 mg/dL (7-18); Bilirubin, Total 0.7 mg/dL (0.2-1.0); CO2 24.2 mmol/L (21.0-32.0); CREATININE 1.3 mg/dL (0.55-1.02); Chloride 106 mmol/L (98-107); Estimated GFR 47.78 (mL/min/1.73m2); Glucose 111 mg/dL (74-106); Potassium 3.9 mmol/L (3.5-5.1); Sodium 143 mmol/L (136-145); Total Protein 7.5 g/dL (6.4-8.2)
[2020-12-21] MEDS: Normal Saline 1,000 ML 1000 ML IV (11:16)
== END 2020-12-21 12:34 | disposition home or self-care (01) ==
PROVIDERS: Emergency Provider Registered Nurse Emergency; PCP Family Medicine
DX: R51.9 Headache, unspecified (principal); J01.80 Other acute sinusitis
CPT/HCPCS: 36415; 80053; 81025; 96361; 96374; 96375; 99284; 70450; 85025; J0780; J1200

== ENCOUNTER 2021-01-12 01:44 | Outpatient (REF) | payer OTHER, SELFPAY ==
[2021-01-12 20:56] LABS: COVID-19 RT-PCR UVMMC Result Negative (Negative)
== END 2021-01-12 01:45 | disposition home or self-care (01) ==
LOC: LBO 01:44
PROVIDERS: PCP Family Medicine; Visit Provider Nurse Practitioner Family
DX: Z20.822 Contact with and (suspected) exposure to COVID-19 (principal)
CPT/HCPCS: U0003

== ENCOUNTER 2021-02-02 11:07 | Outpatient (CLI) | payer OTHER, SELFPAY ==
[2021-02-02 14:54] LABS: D-Dimer 144 ng/mlFEU (<500)
== END 2021-02-02 11:08 ==
LOC: LBO 02-05 11:07
PROVIDERS: PCP Family Medicine; Visit Provider Nurse Practitioner Family
DX: M79.604 Pain in right leg (principal)
CPT/HCPCS: 36415; 83735; 85379

== ENCOUNTER 2021-06-07 13:21 | Outpatient (REF) | payer OTHER, SELFPAY ==
[2021-06-08 23:04] LABS: COVID-19 RT-PCR UVMMC Result Negative (Negative)
== END 2021-06-07 13:22 | disposition home or self-care (01) ==
LOC: LBN 13:21
PROVIDERS: PCP Family Medicine; Visit Provider Obstetrics & Gynecology
DX: Z20.822 Contact with and (suspected) exposure to COVID-19 (principal)
CPT/HCPCS: U0003

== ENCOUNTER 2021-07-26 18:21 | Outpatient (REF) | payer OTHER, SELFPAY ==
[2021-07-26 19:35] LABS: COVID-19 RT-PCR UVMMC Result Negative (Negative)
== END 2021-07-26 18:22 | disposition home or self-care (01) ==
LOC: LBN 18:21
PROVIDERS: PCP Family Medicine; Visit Provider Obstetrics & Gynecology
DX: Z20.822 Contact with and (suspected) exposure to COVID-19 (principal)
CPT/HCPCS: U0003

== ENCOUNTER 2021-08-05 02:25 | Outpatient (CLI) | payer OTHER, SELFPAY | END 2021-08-05 02:26 | disposition home or self-care (01) | LOC: LBO 02:25 | PROVIDERS: PCP Family Medicine; Visit Provider Family Medicine ==

== ENCOUNTER 2021-08-13 01:50 | Outpatient (CLI) | payer OTHER, SELFPAY ==
[2021-08-13 09:15] LABS: CREATININE 1.1 mg/dL (0.55-1.02); Calculated LDL 113 mg/dL (<100); Cholesterol 162 mg/dL (<200); Estimated GFR 57.93 (mL/min/1.73m2); HDL Cholesterol 39 mg/dL (40-60); TSH (W/Ref FT4) 3.49 uIU/mL (0.36-3.74); Triglyceride 52 mg/dL (<150)
== END 2021-08-13 01:51 | disposition home or self-care (01) ==
LOC: LBO 01:50
PROVIDERS: PCP Family Medicine; Visit Provider Family Medicine
DX: E03.9 Hypothyroidism, unspecified (principal); I10 Essential (primary) hypertension; E78.5 Hyperlipidemia, unspecified
CPT/HCPCS: 36415; 80061; 82565; 84443

== ENCOUNTER 2021-08-26 10:24 | Outpatient (CLI) | payer OTHER, SELFPAY ==
[2021-08-26 10:37] LABS: Source Nasal/Nares
[2021-08-26 14:10] LABS: COVID-19 PCR Negative (Negative)
== END 2021-08-26 10:25 | disposition home or self-care (01) ==
LOC: LBO 10:25
PROVIDERS: PCP Family Medicine; Visit Provider Obstetrics & Gynecology
DX: Z20.822 Contact with and (suspected) exposure to COVID-19 (principal)
CPT/HCPCS: 87635

== ENCOUNTER 2022-02-25 02:50 | Outpatient (CLI) | payer OTHER, SELFPAY ==
[2022-02-25 09:14] LABS: Anion Gap 10.2 mmol/L (3-11); BUN 9 mg/dL (7-18); CO2 24.8 mmol/L (21.0-32.0); CREATININE 1.2 mg/dL (0.55-1.02); Chloride 110 mmol/L (98-107); Estimated GFR 61.68 (mL/min/1.73m2); Glucose 101 mg/dL (74-106); Potassium 3.7 mmol/L (3.5-5.1); Sodium 145 mmol/L (136-145)
== END 2022-02-25 02:51 | disposition home or self-care (01) ==
LOC: LBO 02:50
PROVIDERS: PCP Family Medicine; Visit Provider Family Medicine
DX: E87.1 Hypo-osmolality and hyponatremia (principal)
CPT/HCPCS: 36415; 80048

== ENCOUNTER 2022-03-10 09:41 | Outpatient (REF) | payer OTHER, SELFPAY ==
[2022-03-10 09:47] LABS: Source Nasal/Nares
[2022-03-10 10:21] LABS: COVID-19 PCR Negative (Negative)
== END 2022-03-10 09:42 | disposition home or self-care (01) ==
LOC: LBN 09:41
PROVIDERS: PCP Family Medicine; Visit Provider Obstetrics & Gynecology
DX: Z20.822 Contact with and (suspected) exposure to COVID-19 (principal)
CPT/HCPCS: 87635

== ENCOUNTER 2023-02-02 14:19 | Outpatient (REF) | payer OTHER, SELFPAY ==
[2023-02-02 14:03] LABS: Source Nasal/Nares
[2023-02-02 14:55] LABS: COVID-19 PCR Negative (Negative)
== END 2023-02-02 14:20 | disposition home or self-care (01) ==
LOC: LBN 14:19
PROVIDERS: PCP Family Medicine; Visit Provider Obstetrics & Gynecology
DX: R09.81 Nasal congestion (principal)
CPT/HCPCS: 87635

== ENCOUNTER 2023-06-21 15:16 | Outpatient (REF) | payer OTHER, SELFPAY ==
--- NOTE | 2023-06-21 13:10 | ENDOMET_PTH ---
PATIENT: Maday Cordero LOC: N U#:[id number] AGE/SX: 32/F ROOM: RE06/21/[address]: Olga Rodriguez DO : 1990 BED: DIS: 06/21/2023 SPEC #: [id number] RECD: 06/21/23 17:28 STATUS: ALAN REQ #: [id number] BETTY: 06/21/23 13:[address]: Olga Rodriguez DEPT: Surgical Specimen RECD BY: Ngoc Yeboah ENTERED: 06/21/23 17:29 SP TYPE: Endomet OTHR DR: Aris Mueller MD Tissues: 1 - ENDOMETRIUM BX/CURRETTE Procedures: GROSS AND MICRO LEVEL 4 Comments: [id number]
== END 2023-06-21 15:17 | disposition home or self-care (01) ==
LOC: LBN 15:16
PROVIDERS: PCP Family Medicine; Visit Provider Obstetrics & Gynecology
DX: D25.9 Leiomyoma of uterus, unspecified (principal); N93.8 Other specified abnormal uterine and vaginal bleeding
CPT/HCPCS: 88305

== ENCOUNTER 2023-07-11 16:20 | Outpatient (REF) | payer OTHER, SELFPAY ==
--- NOTE | 2023-07-11 15:40 | ENDOMET_PTH ---
PATIENT: Maday Cordero LOC: N U#:[id number] AGE/SX: 32/F ROOM: RE07/11/[address]: Olga Rodriguez DO : 1990 BED: DIS: 07/11/2023 SPEC #: [id number] RECD: 07/11/23 17:36 STATUS: ALAN REQ #: [id number] BETTY: 07/11/23 15:[address]: Olga Rodriguez DEPT: Surgical Specimen RECD BY: Ngoc Yeboah ENTERED: 07/11/23 17:37 SP TYPE: Endomet OTHR DR: Aris Mueller MD Tissues: 1 - ENDOMETRIUM BX/CURRETTE Procedures: GROSS AND MICRO LEVEL 4 Comments: [id number]
== END 2023-07-11 16:21 | disposition home or self-care (01) ==
LOC: LBN 16:20
PROVIDERS: PCP Family Medicine; Visit Provider Obstetrics & Gynecology
DX: N93.8 Other specified abnormal uterine and vaginal bleeding (principal); D25.9 Leiomyoma of uterus, unspecified; N85.8 Other specified noninflammatory disorders of uterus
CPT/HCPCS: 88305

== ENCOUNTER → 2023-07-19 17:42 | Outpatient (CLI) | payer OTHER, SELFPAY ==
--- NOTE | 2023-07-19 10:30 | DI.US_ITS ---
APPROVED REPORT EXAM: Comprehensive 2D, Doppler, and color-flow Echocardiogram Patient Location: Out-Patient Scaler Packer: Atiya Burnette RDCS (AE) Indications: Pre operative, HTN Other Information Study Quality: Adequate Conclusion Borderline concentric left ventricular hypertrophy. EF is 60% Normal right ventricular size and function Both atria are normal in size There is no structural or hemodynamically significant valvular disease Wall motion Left Ventricle The left ventricle is normal size. The left ventricular systolic function is normal. The left ventric ular ejection fraction is within the normal range. Borderline concentric left ventricular hypertrophy . There is normal LV segmental wall motion. There is no ventricular septal defect visualized. LVEF is 60% Right Ventricle The right ventricle is normal size. The right ventricular systolic function is normal. Atria The left atrium size is normal. The right atrium size is normal. The interatrial septum is intact wit h no evidence for an atrial septal defect. Aortic Valve The aortic valve is normal in structure. Aortic valve is trileaflet. There is no aortic valvular sten osis. No aortic regurgitation is present. Mitral Valve The mitral valve is normal in structure. No evidence of mitral valve stenosis. Trace mitral regurgita tion. Tricuspid Valve The tricuspid valve is normal in structure. There is no tricuspid valve stenosis. Trace tricuspid reg urgitation. Unable to assess PA pressure. Pulmonic Valve The pulmonary valve is normal in structure. There is no pulmonic valvular stenosis. There is no pulmo harper valvular regurgitation. Great Vessels The aortic root is normal in size. The ascending aorta is normal in size. Aortic arch is normal in ca liber. IVC is normal in size and collapses >50% with inspiration. Pericardium There is no pericardial effusion. 2D Dimensions IVSD d PLAX 1.33 cm F: 0.6-1.0 Ao Root d 3.15 cm F: 2.7 - 3.3 LVPW d PLAX 1.30 cm F: 0.6 - 1.0 Ao Asc Diam d 2.91 cm F: 2.3 - 3.1 LVID d PLAX 4.66 cm F: 3.8 - 5.2 LVDs 3.26 cm F: 2.2 - 3.5 LV EF Teichholz 57.4 % FS 30.09 % LV EDV (Teich) 100.3 mL LV ESV (Teich) 42.8 mL M-Mode TAPSE 1.60 cm (M/F) >1.7 Auto EF LV EDV A4C 131.6 mL LV EDV A2C 136.8 mL LV EDV BP 132.4 mL LV ESV A4C 56.8 mL LV ESV A2C 62.0 mL LV ESV BP 59.6 mL LVEF(%) A4C 56.8 % LVEF(%) A2C 54.7 % LVEF(%) BP 55.0 % LV SV A4C 74.7 ml LV SV A2C 74.8 ml LV SV BP 72.8 ml LV CO A4C 5.5 L/min LV CO A2C 5.0 L/min LV CO BP 5.2 L/min HR A4C 74.04 BPM HR A2C 66.30 BPM LV EDV Index (BP) LA Volume LA Length A4C 5.3 cm LA Length A2C 4.8 cm LA Area A4C s 16.54 cm2 LA Area A2C s 18.15 cm2 LA Vol A4C A-L 43.62 mL LA Vol A2C A-L 58.82 mL LA Vol Biplane A-L 53.6 mL LA Vol/BSA A4C A-L LA Vol/BSA A2C A-L LA Vol/BSA BP A-L 22.7 mL/m2 LA Vol A4C MOD 40.9 mL LA Vol A2C MOD 57.1 mL LA Vol BP MOD 50.8 mL RA Volume RA Area A4C 11.8 cm2 RA ESV A4C (A-L) 26.4mL RA Vol/BSA A4C A-L RA Length A4C 4.5 cm RA ESV A4C (MOD) 25.4mL LV Diastology MV E' medial 0.109 (>0.07 m/s) MV E Vmax 0.79 (0.4-1.3 m/s) MV E/E' MED 7.29 (<14) MV A Vmax 0.65 (0.4-1.3 m/s) E/A Ratio 1.2 Aortic Valve AoV Vmax 1.48 m/s LVOT Vmax 0.98 m/s AoV Peak Grad 8.7 mmHg LVOT Peak Grad 3.8 mmHg AoV Area (Vmax) 2.10 cm2 LVOT VTI 0.186 m AoV VTI 0.333 m LVOT Mean Grad 2.1 mmHg AoV Mean Rodri. 1.09 m/s LVOT SV 58.92 mL AoV Mean Grad 5.3 mmHg LVOT Diam s 2.00 cm AoV Area (VTI) 1.77 cm2 Velocity Ratio 0.66 Mitral Valve MV DT 242 (160-240 msec) MV Vmax TIPS 0.80 m/s MV Mean Grad 1.4 (<2mmHg) MV VTI 0.232 m Pulmonary Valve PV Vmax 1.09 (0.5-1.5 m/s) RVOT Vmax 0.60 m/s PV Peak Grad 4.7 mmHg RVOT Peak Gr. 1.4 mmHg PV Mean Rodri 0.84 m/s RVOT VTI 0.128 m PV Mean Grad 3.1 mmHg RVOT Mean Gr. 1.0 mmHg Tricuspid Valve RA Pressure 3.00 mmHg TV S' 0.11 m/s
== END ==
PROVIDERS: PCP Family Medicine; Visit Provider Obstetrics & Gynecology
DX: I10 Essential (primary) hypertension (principal)
CPT/HCPCS: 93306

== ENCOUNTER 2023-09-04 15:12 | Outpatient (CLI) | payer OTHER, SELFPAY ==
[2023-09-04 15:03] LABS: Hemoglobin A1C 5.4 % (<5.7)
== END 2023-09-04 15:13 | disposition home or self-care (01) ==
LOC: LBO 15:13
PROVIDERS: PCP Family Medicine; Visit Provider Family Medicine
DX: E11.51 Type 2 diabetes mellitus with diabetic peripheral angiopathy without gangrene (principal); I70.203 Unspecified atherosclerosis of native arteries of extremities, bilateral legs
CPT/HCPCS: 36415; 83036

== ENCOUNTER 2023-11-03 10:21 | Outpatient (CLI) | payer OTHER, SELFPAY | END 2023-11-03 10:22 | disposition home or self-care (01) | PROVIDERS: PCP Family Medicine; Visit Provider Family Medicine | DX: R55 Syncope and collapse (principal) | CPT/HCPCS: 93270 ==

== ENCOUNTER 2023-12-05 09:55 | Outpatient (CLI) | payer OTHER, SELFPAY ==
--- NOTE | 2023-12-05 11:59 | W.CARDEVENT ---
Date of service: 12/05/23 Time of Service: 11:59 Cardiac Event Recorder Referring Provider:: Aris Mueller Indications:: Syncope Cardiac Event Note: This is a cardiac event monitor ordered for syncope. Patient was monitored for 28 days and 23 hours Rhythm throughout with sinus. Average heart rate was 80. Minimum heart rate was 49, maximum heart rate was 157 There was no atrial fibrillation, no high-grade AV block, no pauses greater than 3 seconds Symptoms correlated to sinus rhythm
== END 2023-12-05 09:56 | disposition home or self-care (01) ==
LOC: CARDOPNVT 09:55
PROVIDERS: PCP Family Medicine; Visit Provider Internal Medicine Cardiovascular Disease
DX: R55 Syncope and collapse (principal)

== ENCOUNTER 2024-09-10 17:08 | Outpatient (REF) | payer OTHER, SELFPAY ==
--- NOTE | 2024-09-10 07:42 | SKI_PTH ---
PATIENT: Maday Cordero LOC: N U#:[id number] AGE/SX: 33/F ROOM: RE09/10/[address]: Bartolome Lisa MD : 1990 BED: DIS: 09/10/2024 SPEC #: [id number] RECD: 09/10/24 18:29 STATUS: ALAN REKatie #: [id number] BETTY: 09/10/24 07:[address]: Bartolome Lisa DEPT: Surgical Specimen RECD BY: Ngoc Yeboah ENTERED: 09/10/24 18:29 SP TYPE: DELANEY DUPONT DR: Aris Mueller MD Tissues: 1 - SKIN BIOPSY(SHAVE/PUNCH) Procedures: SKIN LEVEL 4 Comments: [id number]
== END 2024-09-10 17:09 | disposition home or self-care (01) ==
LOC: LBN 17:08
PROVIDERS: PCP Family Medicine; Visit Provider Otolaryngology
DX: D22.39 Melanocytic nevi of other parts of face (principal)
CPT/HCPCS: 88305

== ENCOUNTER 2024-11-14 10:56 | Outpatient (CLI) | payer OTHER, SELFPAY ==
[2024-11-14 10:38] LABS: Hemoglobin A1C 5.3 % (<5.7)
[2024-11-14 10:55] LABS: Anion Gap 8.5 mmol/L (3-11); BUN 9 mg/dL (7-18); CO2 30.5 mmol/L (21.0-32.0); Calcium 9.6 mg/dL (8.5-10.1); Calculated LDL 115 mg/dL (<100); Chloride 102 mmol/L (98-107); Cholesterol 179 mg/dL (<200); Estimated GFR 60.54 (mL/min/1.73m2); Glucose 80 mg/dL (74-106); HDL Cholesterol 40 mg/dL (>or=50); Potassium 3.2 mmol/L (3.5-5.1); Sodium 141 mmol/L (136-145); Triglyceride 122 mg/dL (<150)
== END 2024-11-14 10:57 | disposition home or self-care (01) ==
LOC: LBO 10:56
PROVIDERS: PCP Family Medicine; Visit Provider Family Medicine
DX: E78.5 Hyperlipidemia, unspecified (principal); R73.9 Hyperglycemia, unspecified; E87.1 Hypo-osmolality and hyponatremia
CPT/HCPCS: 36415; 80048; 80061; 83036

== ENCOUNTER 2024-12-13 18:18 | Outpatient (REF) | payer OTHER, SELFPAY | END 2024-12-13 18:19 | disposition home or self-care (01) | LOC: LBN 18:18 | PROVIDERS: PCP Family Medicine; Visit Provider Physician Assistant | DX: J02.9 Acute pharyngitis, unspecified (principal) | CPT/HCPCS: 87070 ==

== ENCOUNTER 2025-04-23 02:36 | Outpatient (CLI) | payer OTHER, SELFPAY ==
[2025-04-23 10:30] LABS: Potassium 3.2 mmol/L (3.5-5.1)
[2025-04-23 10:44] LABS: Vitamin D 25 Total 17 ng/mL (30-100)
== END 2025-04-23 02:37 | disposition home or self-care (01) ==
LOC: LBO 02:37
PROVIDERS: PCP Family Medicine; Visit Provider Family Medicine
DX: I10 Essential (primary) hypertension (principal); G40.909 Epilepsy, unspecified, not intractable, without status epilepticus
CPT/HCPCS: 36415; 82306; 84132